=== PATIENT | male | born 1940 | race Two or more races ===

== ENCOUNTER 2016-07-06 09:42 | Day surgery (SDC) | payer BC ==
--- NOTE | ~2016-07-06 | EGD ---
EGD REPORT [facility] [address] [place] [address] NAME: ANDREAS KLEIN : [birth year] STATUS : REG [facility]#: [id number] AGE: 75 ADM/REG DATE : 07/06/16 MR#: [id number] REPORT SERV DATE: 07/06/16 DICTATED BY: BRITTNEY TREVIÑO DATE: 07/06/16 REPORT STATUS : Draft TRANSCRIBED BY: [facility] DATE: 07/06/16 End[facility] Center Patient Name: Andreas Klein Date of : 1940 Attending MD: BRITTNEY TREVIÑO MD Procedure Date No Time: 07/06/2016 Procedure: Colonoscopy Indications: Screening for colorectal malignant neoplasm Referring MD: ROLANDO DECKER Medicines: as per anesthesia Complications: No immediate complications. Procedure: Pre-Anesthesia Assessment: - ASA Grade Assessment: III - A patient with severe systemic disease. After I obtained informed consent, the scope was passed under direct vision. Throughout the procedure, the patient's blood pressure, pulse, and oxygen saturations were monitored continuously. The PCF [id number] was introduced through the anus and advanced to the cecum, identified by appendiceal orifice and ileocecal valve. The colonoscopy was performed without difficulty. The patient tolerated the procedure. The quality of the bowel preparation was adequate to identify polyps. Findings: The perianal and digital rectal examinations were normal. Internal hemorrhoids were found during endoscopy and were mild. Impression: - Internal hemorrhoids. Recommendation: - Continue present medications. Procedure Code(s): --- Professional --- 23828, Colonoscopy, flexible, proximal to splenic flexure; diagnostic, with or without collection of specimen(s) by brushing or washing, with or without colon decompression (separate procedure) Diagnosis Code(s): --- Professional --- K64.8, Other hemorrhoids Z12.11, Encounter for screening for malignant neoplasm of colon CPT copyright 2013 [employer]. All rights reserved. EGD REPORT [facility] [address] [place] [address] NAME: ANDREAS KLEIN : [birth year] STATUS : REG [facility]#: [id number] AGE: 75 ADM/REG DATE : 07/06/16 MR#: [id number] REPORT SERV DATE: 07/06/16 DICTATED BY: BRITTNEY TREVIÑO. DATE: 07/06/16 REPORT STATUS : Draft TRANSCRIBED BY: [employer] DATE: 07/06/16 The codes documented in this report are preliminary and upon outpatient coder review may be revised to meet current compliance requirements. BRITTNEY TREVIÑO MD 07/06/2016 11:54 AM This report has been signed electronically. Number of Addenda: 0 Note Initiated On: 07/06/2016 11:35 AM Scope Withdrawal Time 0 hours 7 minutes 49 seconds [address] [place] [id number]
[~2016-07-06 09:42] MED LIST: ALTA2.5 PO; ASAB PO; ASTELIN NAS; COREG12 PO; COREG6 PO; COZAAR100 MG PO; FESO4 PO; FISH-EPA1000 MG PO; GARLIC; GLUCOPHAGE1000 MG PO; HALF81 PO; HYZAAR 100/25 T1 TAB PO; HYZAAR 50/12.51 TAB PO; HYZAAR1 TAB PO; INSULIN SC; IRON; KLOR-CON M2020 MEQ PO; LEVEMFLXPN SC; LEVEMIR SC; MEGA RED FISH OIL PO; MEGARED PO; MULTIPLE VIT PO; MULTIVITAMI1 PO; NITROSTAT0.4 MG SL; NORV10 PO; NORV5 PO; PRAVACHOL40 MG PO; PROTONIX PO; PROTONIX20 MG PO; VANTIN200 MG PO
== END 2016-07-06 23:59 | disposition home or self-care (01) ==
LOC: DMU 09:42
PROVIDERS: Internal Medicine Gastroenterology
PROC: 0DJD8ZZ Inspection of Lower Intestinal Tract, Via Natural or Artificial Opening Endoscopic (ICD-10-PCS; principal; 2016-07-06 11:00)
DX: Z12.11 Encounter for screening for malignant neoplasm of colon (principal); K64.8 Other hemorrhoids; I25.10 Atherosclerotic heart disease of native coronary artery without angina pectoris; I10 Essential (primary) hypertension; E11.9 Type 2 diabetes mellitus without complications; M19.90 Unspecified osteoarthritis, unspecified site; Z98.41 Cataract extraction status, right eye; Z95.1 Presence of aortocoronary bypass graft; Z98.42 Cataract extraction status, left eye; Z96.1 Presence of intraocular lens; Z98.890 Other specified postprocedural states; Z87.09 Personal history of other diseases of the respiratory system; Z79.899 Other long term (current) drug therapy; Z79.82 Long term (current) use of aspirin; Z79.4 Long term (current) use of insulin; Z79.84 Long term (current) use of oral hypoglycemic drugs
CPT/HCPCS: 82962